=== PATIENT | female | born 1975 | race Caucasian/White ===

== ENCOUNTER 2017-03-20 19:14 | Emergency (ER) | payer SELFPAY ==
[~2017-03-20] VITALS: Ht 175.3 cm; Wt 105.0 kg
[2017-03-20] MEDS ORDERED: TRAZ50TA11 PO (19:28)
[2017-03-20] MEDS ORDERED: SERO1TAB2 PO (19:28)
[2017-03-20] MEDS ORDERED: LEVO25TA5 PO (19:28)
[2017-03-20] MEDS ORDERED: CELE20TA PO (19:28)
[2017-03-20] MEDS ORDERED: FAMOTIDINE IV BAG 20 MG in APPROPRIATE DILUENT 1 EA IV ONE (19:45)
[2017-03-20] MEDS ORDERED: methylPREDNISolone INJ 125 MG/2 ML VIAL (J2930) IV ONE (19:45)
[2017-03-20] MEDS ORDERED: diphenhydrAMINE INJ 50MG/ML VIAL (J1200) IV ONE (19:45)
[2017-03-20] MEDS ORDERED: EPIP0.3I2 IJ (21:20)
[2017-03-21 00:09] VITALS: BP 120/74
== END 2017-03-21 00:10 | disposition home or self-care (01) ==
LOC: M ED 19:14
DX: R22.1 Localized swelling, mass and lump, neck (principal); T78.40XA Allergy, unspecified, initial encounter; Y92.9 Unspecified place or not applicable; Y93.9 Activity, unspecified; F32.9 Major depressive disorder, single episode, unspecified; F41.9 Anxiety disorder, unspecified; F43.10 Post-traumatic stress disorder, unspecified; Z79.899 Other long term (current) drug therapy; Z88.1 Allergy status to other antibiotic agents; Z88.0 Allergy status to penicillin; Z88.2 Allergy status to sulfonamides
CPT/HCPCS: 93041; 96374; 96375; 99284; J1200; J2930

== ENCOUNTER → 2024-09-28 | Outpatient (REF) | payer OTHER ==
[~2024-09-28] MED LIST: CELE20TA PO; EPIP0.3I2 IJ; LEVO25TA5 PO; SERO1TAB2 PO; TRAZ-252 PO
[2024-09-28 14:53] LABS: HEMATOCRIT 36.3 % (36.0-47.0); MEAN CORPUSCULAR HEMOGLOBIN 24.2 pg (27.0-33.0); MEAN CORPUSCULAR HGB CONC 30.3 g/dl (32.0-36.5); MEAN CORPUSCULAR VOLUME 79.8 fl (80.0-96.0); PLATELET COUNT, AUTOMATED 271 10^3/uL (150-450); RED BLOOD COUNT 4.55 10^6/uL (4.00-5.40); WHITE BLOOD COUNT 11.8 10^3/uL (4.0-10.0)
== END ==
LOC: M LAB REF 12:08
PROVIDERS: ATTEND Family Medicine Addiction Medicine
DX: Z00.01 Encounter for general adult medical examination with abnormal findings (principal)

== ENCOUNTER → 2024-10-11 | Outpatient (REF) | payer OTHER | LOC: M LAB REF 12:05 | PROVIDERS: ATTEND Physician Assistant | DX: J02.9 Acute pharyngitis, unspecified (principal) ==

== ENCOUNTER → 2024-12-10 | Outpatient (REF) | payer OTHER ==
[2024-12-10 13:06] LABS: HEMOGLOBIN 11.7 g/dl (12.0-15.5); MEAN CORPUSCULAR HEMOGLOBIN 22.9 pg (27.0-33.0); MEAN CORPUSCULAR VOLUME 76.2 fl (80.0-96.0); PLATELET COUNT, AUTOMATED 259 10^3/uL (150-450); RED BLOOD COUNT 5.12 10^6/uL (4.00-5.40); WHITE BLOOD COUNT 8.2 10^3/uL (4.0-10.0)
[2024-12-10 13:31] LABS: ALBUMIN 3.8 G/DL (3.2-5.2); BILIRUBIN,TOTAL 0.3 MG/DL (0.3-1.2); CALCIUM LEVEL 9.4 MG/DL (8.5-10.1); CHOLESTEROL RISK RATIO 6.22 (<5); CREATININE FOR GFR 0.83 MG/DL (0.55-1.30); GLOMERULAR FILTRATION RATE 87.5 (>58); HDL CHOLESTEROL 29.4 MG/DL (>40); HEMOGLOBIN A1c 5.6 % (4.0-6.0); LDL CHOLESTEROL 110.4 MG/DL (<100); NON-HDL-C 153.6 MG/DL; POTASSIUM SERUM 4.3 MMOL/L (3.5-5.1); TOTAL PROTEIN 7.2 G/DL (5.7-8.2)
[2024-12-10 13:33] LABS: FREE T4 1.55 NG/DL (0.89-1.76); THYROID STIMULATING HORMONE 0.026 uIU/ML (0.55-4.78)
[2024-12-10 13:34] LABS: TOTAL 25(OH) VITAMIN D 26.3 NG/ML (20.0-100.0)
== END ==
LOC: M LAB REF 12:23
PROVIDERS: ATTEND Student in an Organized Health Care Education/Training Program
DX: Z00.01 Encounter for general adult medical examination with abnormal findings (principal); K92.1 Melena

== ENCOUNTER → 2024-12-26 | Outpatient (REF) | payer OTHER, MEDICAID ==
[2024-12-26 12:47] LABS: BASO # 0.1 10^3/uL (0.0-0.2); BASO % 0.7 % (0.0-1.0); EOS # 0.1 10^3/uL (0.0-0.5); EOS % 1.7 % (0.0-3.0); HEMATOCRIT 38.7 % (36.0-47.0); HEMOGLOBIN 11.9 g/dl (12.0-15.5); LYMPH # 2.2 10^3/uL (1.5-5.0); LYMPH % 26.5 % (24.0-44.0); MEAN CORPUSCULAR HEMOGLOBIN 23.6 pg (27.0-33.0); MEAN CORPUSCULAR HGB CONC 30.7 g/dl (32.0-36.5); MEAN CORPUSCULAR VOLUME 76.6 fl (80.0-96.0); MONO # 0.5 10^3/uL (0.0-0.8); MONO % 6.1 % (2.0-8.0); NEUTROPHILS # 5.4 10^3/uL (1.5-8.5); NEUTROPHILS % 64.5 % (36.0-66.0); PLATELET COUNT, AUTOMATED 260 10^3/uL (150-450); RED BLOOD COUNT 5.05 10^6/uL (4.00-5.40); WHITE BLOOD COUNT 8.4 10^3/uL (4.0-10.0)
[2024-12-26 12:55] LABS: C REACTIVE PROTEIN QUANTITATIV 0.92 MG/DL (<1.0)
[2024-12-26 12:58] LABS: FOLATE 8.1 NG/ML (>5.4)
[2024-12-26 13:04] LABS: ERYTHROCYTE SEDIMENTATION RATE 45 mm/hr (0-20)
[2024-12-26 16:57] LABS: RHEUMATOID FACTOR QUANT 5.6 IU/ML (<14)
== END ==
LOC: M LAB REF 12:13
PROVIDERS: ATTEND Student in an Organized Health Care Education/Training Program
DX: R20.2 Paresthesia of skin (principal); M79.18 Myalgia, other site

== ENCOUNTER 2025-03-26 09:12 | Emergency (ER) | payer MEDICAID ==
[~2025-03-26] VITALS: Ht 172.7 cm; Wt 96.8 kg
[2025-03-26] MEDS ORDERED: CETI-24 (09:21)
[2025-03-26] MEDS ORDERED: MELO15TA28 (09:21)
[2025-03-26] MEDS ORDERED: CLIN1GEL22 (09:21)
[2025-03-26] MEDS ORDERED: FAMO40TA3 (09:21)
[2025-03-26] MEDS ORDERED: LEVO150T7 (09:21)
[2025-03-26] MEDS ORDERED: FLUTISP (09:21)
[2025-03-26] MEDS ORDERED: METH-1164 (09:21)
[2025-03-26 09:42] LABS: BASO # 0.1 10^3/uL (0.0-0.2); BASO % 1.0 % (0.0-1.0); EOS # 0.2 10^3/uL (0.0-0.5); EOS % 1.6 % (0.0-3.0); LYMPH # 2.5 10^3/uL (1.5-5.0); LYMPH % 26.7 % (24.0-44.0); MONO # 0.7 10^3/uL (0.0-0.8); MONO % 7.5 % (2.0-8.0); NEUTROPHILS # 5.8 10^3/uL (1.5-8.5); NEUTROPHILS % 62.6 % (36.0-66.0); PLATELET COUNT, AUTOMATED 243 10^3/uL (150-450)
[2025-03-26 10:19] LABS: ALT/SGPT 17 U/L (7.0-40); AST/SGOT 22 U/L (<34); CALCIUM LEVEL 8.5 MG/DL (8.5-10.1); CARBON DIOXIDE LEVEL 27 MMOL/L (20-31); CHLORIDE LEVEL 106 MMOL/L (98-107); CREATININE FOR GFR 0.82 MG/DL (0.55-1.30); GLOMERULAR FILTRATION RATE 88.2 (>58); POTASSIUM SERUM 4.5 MMOL/L (3.5-5.1); SODIUM LEVEL 143 MMOL/L (136-145)
[2025-03-26 10:26] LABS: CK-MB VALUE MASS < 1.0 NG/ML (<3.6)
[2025-03-26 10:27] LABS: CPK CREATINE PHOSPHOKINASE 56 U/L (34-145)
[2025-03-26] MEDS: GASTROGRAFIN SOLUTION 30ML PO SCH (12:07)
[2025-03-26] MEDS: KETOROLAC 30 MG/ML 1 ML VIAL IV ONE (14:38)
[2025-03-26 14:49] VITALS: BP 134/80; TEMP 97.7; O2SAT 98
== END 2025-03-26 14:57 | disposition home or self-care (01) ==
LOC: M ED 10:04
DX: R10.9 Unspecified abdominal pain (principal); E03.9 Hypothyroidism, unspecified; F43.10 Post-traumatic stress disorder, unspecified; Z90.49 Acquired absence of other specified parts of digestive tract; Z88.0 Allergy status to penicillin; Z88.2 Allergy status to sulfonamides; Z88.1 Allergy status to other antibiotic agents; Z79.899 Other long term (current) drug therapy
CPT/HCPCS: 71046; 74176; 80048; 80076; 82550; 82553; 83690; 84484; 85025; 93005; 96374; 99285; J1885; Q9963

== ENCOUNTER → 2025-06-14 | Outpatient (CLI) | payer OTHER ==
[~2025-06-14] MED LIST changes: +CETI-24; +CLIN1GEL22; +FAMO40TA3; +FLUTISP; +LEVO150T7; +MELO15TA28; +METH-1164
== END ==
LOC: M PLARAD 14:13
PROVIDERS: ATTEND Pain Medicine Interventional Pain Medicine
DX: M54.16 Radiculopathy, lumbar region (principal)

== ENCOUNTER → 2025-06-28 | Outpatient (REF) | payer OTHER, MEDICAID ==
[2025-06-28 15:57] LABS: ESTIMATED AVERAGE GLUCOSE 123.0 MG/DL (60-110)
[2025-06-28 16:16] LABS: VITAMIN B12 LEVEL 538.0 PG/ML (211-911)
[2025-06-28 16:23] LABS: ALT/SGPT 15.0 U/L (7.0-40); AST/SGOT 14.0 U/L (<34); CALCIUM LEVEL 9.6 MG/DL (8.5-10.1); CARBON DIOXIDE LEVEL 24.0 MMOL/L (20-31); CHLORIDE LEVEL 105.0 MMOL/L (98-107); CHOLESTEROL LEVEL 184.0 MG/DL (<200); CHOLESTEROL RISK RATIO 5.95 (<5); CREATININE FOR GFR 0.83 MG/DL (0.55-1.30); GLOMERULAR FILTRATION RATE 86.9 (>58); LDL CHOLESTEROL 89.3 MG/DL (<100); NON-HDL-C 153.1 MG/DL; POTASSIUM SERUM 4.2 MMOL/L (3.5-5.1); SODIUM LEVEL 139.0 MMOL/L (136-145); TOTAL 25(OH) VITAMIN D 24.7 NG/ML (20.0-100.0); TRIGLYCERIDES LEVEL 319.0 MG/DL (<150)
== END ==
LOC: M LAB REF 12:12
PROVIDERS: ATTEND Student in an Organized Health Care Education/Training Program
DX: Z68.35 Body mass index [BMI] 35.0-35.9, adult (principal); E55.9 Vitamin D deficiency, unspecified; K13.79 Other lesions of oral mucosa

== ENCOUNTER → 2025-06-30 | Outpatient (CLI) | payer OTHER | LOC: M LAB 15:50 | PROVIDERS: ATTEND Student in an Organized Health Care Education/Training Program | DX: K13.79 Other lesions of oral mucosa (principal) ==